=== PATIENT | female | born 2000 | race Hispanic/Latino ===

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

== ENCOUNTER 2019-05-19 05:15 | Observation (INO) | payer MEDICAID ==
[~2019-05-19] VITALS: Ht 152.4 cm; Wt 102.5 kg
[2019-05-19] MEDS ORDERED: PREN-196 PO (05:29)
[2019-05-19 05:44] LABS: BILIRUBIN,URINE Negative (NEGATIVE); COLOR,URINE Yellow (YELLOW); GLUCOSE, URINE (UA) Negative (NEGATIVE); KETONES,URINE Negative (NEGATIVE); LEUKOCYTE ESTERASE ,URINE Large (NEGATIVE); NITRATE,URINE Negative (NEGATIVE); OCCULT BLOOD,URINE Negative (NEGATIVE); PH,URINE 6.5 (5.0-8.0); PROTEIN,URINE Negative (NEGATIVE); UROBILINOGEN,URINE 0.2 mg/dL (0.2-1.0)
[2019-05-19 05:47] LABS: APPEARANCE,URINE HAZY (CLEAR)
[2019-05-19 05:55] VITALS: BP 121/59
[2019-05-19] MEDS: LACTATED RINGERS 1000ML IV PRN ×2 (05:55→06:35)
[2019-05-19 06:09] LABS: BACTERIA,URINE Few /HPF (None Seen); RBC,URINE 0-1 /HPF (0-1); WBC,URINE 26-50 /HPF (0-1)
[2019-05-19] MEDS ORDERED: LACTATED RINGERS 1000ML 1,000 ML IV SCH (07:15)
[2019-05-19] MEDS ORDERED: CEFTRIAXONE SODIUM 1 GM IVP SCH (13:00)
[2019-05-19] MEDS ORDERED: CLINDAMYCIN 600 MG/D5% WATER 50 ML IV SCH (13:45)
== END 2019-05-19 19:01 | disposition home or self-care (01) ==
LOC: EDH 05:15 → LDH 05:16
PROVIDERS: ADMIT Obstetrics & Gynecology; ATTEND Obstetrics & Gynecology
DX: O26.893 Other specified pregnancy related conditions, third trimester (principal); R10.30 Lower abdominal pain, unspecified; Z3A.37 37 weeks gestation of pregnancy
CPT/HCPCS: 81001; 96365; 99284; G0378 ×14; J0696; J3490; J7120

== ENCOUNTER 2025-03-08 19:22 | Emergency (ER) | payer SELFPAY ==
[~2025-03-08] VITALS: Ht 160 cm; Wt 116.7 kg
[~2025-03-08 19:22] MED LIST changes: +PREN-196 PO; -PREN-66 PO
--- NOTE | 2025-03-08 19:22 | NUR ---
UA CUP PROVIDED
[2025-03-08 19:23] VITALS: BP 146/69; PULSE 99; RESP 20; TEMP 98.3; O2SAT 99
[2025-03-08] MEDS ORDERED: CLOT15C TP (19:51)
[2025-03-08] MEDS ORDERED: FLUC100T PO (19:51)
[2025-03-08] MEDS ORDERED: DIPH30C TP (19:51)
--- NOTE | 2025-03-08 19:52 | ERN ---
General Chief Complaint: Skin Rash/Abscess Stated Complaint: RASH Time Seen by MD: 19:24 Source: patient History of Present Illness Initial Comments 25-year-old obese female with an extremely itchy rash rash underneath her bilateral breasts extending up to the inframammary fold and the inferior skin of her breasts. It has been present for about a month. She has no No change in medications or anything in her health. She has not seen a doctor in several months. Allergies: Coded Allergies: amoxicillin (Unverified Allergy, Unknown, 03/26/17) Home Meds Reported Medications Vit No.124/Iron/FA ( Vitamin Tablet) 1 Each Tablet, 1 EACH PO DAILY, TAB 05/19/19 Past Medical History Past Medical History: No Pertinent History Past Surgical History: None Female( History) LMP: Feb 20, 2025 : 5 Para: 5 ROS Dictation Review of systems is otherwise negative except for what is in the HPI. Physical Exam Skin Comment Patient has a rash that has a classic appearance for yeast. She states that she does not have any rash in her in from abdominal folds or her groins. MDM Patient has a yeast infection. It has a classic appearance in the classic location. And it itches. I will send her home with some antifungal cream and some antifungal medication and Benadryl cream. ED Course Vital Signs Date Time Temp Pulse Resp B/P (MAP) Pulse Ox O2 Delivery O2 Flow Rate FiO2 03/08/25 19:23 98.2 99 20 146/69 99 Room Air DX & DISP Disposition: Discharge Departure Impression: Primary Impression: Yeast infection of the skin Condition: Stable Scripts Clotrimazole (Lotrimin 1% Cream) 1 % Crm 1 APPL TP BID for 7 Days, #15 GM 0 Refills apply to affected area(s) Prov: NIKOLE BROWNING MD 03/08/25 Diphenhydramine HCl/Zinc Acet (Benadryl Itch Stopping Crm) 1 %-0.1 % Cream..g. 1 APPL TP TID for 5 Days, #7 GM 0 Refills Prov: NIKOLE BROWNING MD 03/08/25 Fluconazole (Diflucan) 100 Mg Tablet 1 TAB PO DAILY for 7 Days, #7 TAB 0 Refills Prov: NIKOLE BROWNING MD 03/08/25 Additional Instructions: You have a yeast rash in her inframammary folds this is a classic location for a yeast rash. The rash has all the appearances of a yeast rash and itching also supports that diagnosis. I have sent some medications to your pharmacy to help clear up the rash. If these creams do not start to clean up the rash in a week or two please go see your primary care physician or return to the emergency room for other possible treatments. I may not have given you a enough cream to completely eradicate the rash please see your primary care physician if you need refills. NIKOLE BROWNING MD Mar 08, 2025 19:52
== END 2025-03-08 20:10 | disposition home or self-care (01) ==
LOC: EDH 19:22
DX: B37.2 Candidiasis of skin and nail (principal); E66.9 Obesity, unspecified; Z88.0 Allergy status to penicillin; Z68.42 Body mass index [BMI] 45.0-49.9, adult; Z79.899 Other long term (current) drug therapy
CPT/HCPCS: 99283